=== PATIENT | female | born 1965 ===

== ENCOUNTER 2020-08-07 03:50 | Inpatient (IN) | payer MEDICAID, SELFPAY ==
[2020-08-07] VITALS (15 sets, daily range): BP systolic 101–121; BP diastolic 63–86; PULSE 63–91; RESP 16–18; TEMP 36.5–37.1; O2SAT 94–100
--- NOTE | 2020-08-07 04:54 | PM.HP ---
Providers/Chief Complaint Admitting Physician: Cal Hawley Chief Complaint: Weakness, SOB History of Present Illness Cristine Ramirez is a 54 year old female transferred from [facility] emergency room with diagnosis of cachexia, generalized weakness, findings highly suspicious for advanced lung cancer. The patient presented to emergency room due to severe generalized weakness. Today she was not able to get up and walk. She has lost significant amount of weight since last May. She reports dry cough, shortness of breath and right-sided chest pain. Reports decreased appetite. Denies associated fever or chills, vomiting, diarrhea. Denies similar episodes in the past. She reports tobacco use. He states that she does not drink anymore. Imaging studies in the emergency room revealed complete collapse of the right lung with obstruction of the right mainstem bronchus. Underlying endobronchial and hilar lesion is a concern and cannot be excluded. Small right-sided pleural effusion. There are 2 semisolid masses within the left upper and lower lobe. There is a nodule identified in the left upper lobe as well. There is a compression fracture of the T8 vertebral body. There is heterogeneous appearance of the vertebral body and underlying lesion and pathologic fracture suspected. Please see full official radiology report in the chart (CT chest, abdomen and pelvis) EKG showed normal sinus rhythm. Right atrial enlargement and voltage criteria for left ventricular hypertrophy. No ischemic changes. Blood cell count is 23,000, hemoglobin 12, MCV 81, platelets 631, neutrophils 83, lymphocytes 7, sodium 127, potassium 5.6, chloride 87, bicarb 21, calcium 10.7, BUN 64, creatinine 1.60, glucose 122, protein 7.5, albumin 3.8, LFTs are not elevated. GFR 33. Troponin 31. Lactic acid 2.5. Lipase 43. Review of Systems General: Reports: 10 or more systems reviewed and unremarkable except in HPI and below Medications/Allergies Home Medications Medication Instructions Recorded Confirmed Last Taken Type aspirin 81 mg PO DAILY 08/07/20 08/07/20 08/06/20 08:00 History lisinopril 10 mg PO DAILY 08/07/20 08/07/20 08/06/20 08:00 History Vitals/I&O/Wt Weight last 48 hrs Weight 24.948 kg Physical Exam Narrative: EXAM NARRATIVE: The patient is extremely cachectic. She weighs only 25 kg. Awake. Appears very weak. Responses are slow but adequate. No acute distress Skin is warm and dry. Pale. Moist mucous membranes Eyes PERRL, extraocular muscles are intact Neck supple. No JVD Lungs no breath sounds on the right. Left side decreased breath sounds. No respiratory distress at rest Heart S1, S2, regular Abdomen soft, nontender, bowel sounds are present Extremities no edema cyanosis or calf tenderness bilaterally Normal speech. No focal weakness. A&P Additional A&P Information Cristine Ramirez is a 54 year old female transferred from [facility] emergency room with diagnosis of cachexia, generalized weakness, findings highly suspicious for advanced lung cancer. The patient presented to emergency room due to severe generalized weakness. Right lung collapse probably due to a tumor. Associated nodules on the left and suspected pathologic T8 fracture. Will request pulmonary consultation. Probably the patient will need to have a bronchoscopy for tissue sample biopsy. Currently she is stable and there is no significant hypoxia. Extreme cachexia. We will start with the hydration. Regular diet. Nutritional consult in the morning. Vitamins. Acute kidney injury probably secondary to dehydration. Will hydrate and monitor. Will consider additional testing if it does not improve. Hyponatremia. SIADH is suspected. Will order work-up. Could be also at least partly explained by dehydration. We will monitor her BMP every 4 hours to avoid the rapid correction. Hyperkalemia. Probably due to lisinopril. We will hold her lisinopril. We will hydrate with normal saline and recheck the levels. Leukocytosis. Postobstructive pneumonia is possible. We will start Zosyn and doxycycline. Will check procalcitonin level. We will monitor her CBC. DVT prophylaxis. Teds and SCDs. We will hold off on anticoagulation until pulmonary evaluation in case if bronchoscopy can be done in the morning. EtOH. She reports that she does not drink anymore. Currently there is no evidence of withdrawals. We will order as needed lorazepam small dose due to the weight of the patient. We will also replace her thiamine and folic acid. CODE STATUS. She wants to be full code. The plan of care was discussed with the patient. She verbalized understanding and agreement. Attestations Medical Necessity Statement*: Based on my assessment of patient's condition she will require more than 2 midnights in the hospital. Coding Level of Care Code Acute Irradiated Fuel Handler for Vida Bond
[2020-08-07] MEDS: famotidine 20 mg/2 mL INJ IVP ×2 (05:26→16:50)
[2020-08-07] MEDS: sodium chloride 0.9% 1,000 ML 75 ML IV (05:27)
[2020-08-07] MEDS: morphine 4 mg/mL SDV 1 mL 1 MG IVP ×2 (05:27→16:58)
--- NOTE | 2020-08-07 06:38 | ECG_ITS ---
[facility] ED Test Date: 2020-08-07 Pat Name: Cristine Ramirez Department: Room: 264 Gender: Female Cap Inspector: : [id number] Requested By: Cal Funk Order Number: [id number] Lydia MD: Alexus Lazar M.D. Measurements Intervals [place] Rate: 180 P: HI: QRS: 57 QRSD: 73 T: 74 QT: 243 QTc: 421 Interpretive Statements ATRIAL FIBRILLATION WITH RAPID VENTRICULAR RESPONSE ABNORMAL RHYTHM ECG No previous ECG available for comparison Electronically Signed On 08-09-2020 21:16:58 CDT by Alexus Lazar M.D. [id number]
[2020-08-07] MEDS: metoprolol tartrate 1 mg/1 mL SDV 5 mL 5 MG IV (07:32)
--- NOTE | 2020-08-07 08:02 | PC.NURSE ---
patient's heart rate noted to be going from 70s up to 180s at times. Upon assessment this was confirmed by palpation and auscultation of pulses. Patient care nurse Gualberto Mcarthur LPN took patients vs, which were WNL other than heart rate,called Dr. Hawley who ordered an EKG. EKG showed a fib with rvr, Dr. Hawley notified who ordered 5mg metoprolol IV. This nurse assessed patients blood pressure which was 129/78 and started giving iv metoprolol, throughout medication administration patients blood pressure remained in this range. Heart rate was checked on geomorphology teacher multiple times during administration as well as at bedside, heart rate came down into the 70s-80s and sustained NSR. Blood pressure upon completed dose of iv metoprolol was 117/68. heart rate is now NSR at 70, however patient does yoshi down into the upper 40s. Patient is asymptomatic. Dr. Garvin notifed of this. Patient resting in bed at this time, eating breakfast, no complaints voiced. Call light within reach, patient care nurse Shantel Funk LPN and this nurse will continue to monitor patient.
[2020-08-07] MEDS: piperacillin-tazobactam 3.375 GM in sodium chloride 0.9% (plus) 50 ML IV ×2 (10:09→21:08)
[2020-08-07] MEDS: multivitamin therapeutic Tablet 1 TAB PO (10:10)
[2020-08-07] MEDS: aspirin 81 mg Chew Tablet PO (10:10)
[2020-08-07] MEDS: folic acid 1 mg Tablet PO (10:10)
[2020-08-07] MEDS: doxycycline 100 mg Tablet PO ×2 (10:10→17:56)
[2020-08-07 10:48] LABS: Lactic Sepsis W/Reflex 1.5 mmol/L (0.5-2.2)
[2020-08-07 11:02] LABS: Thyroid Stimulating Hormone 1.14 uIU/mL (0.27-4.20)
[2020-08-07 11:14] LABS: Anion Gap 21.4 (5-19); Blood Urea Nitrogen 61 mg/dL (6-20); Calcium 8.8 mg/dL (8.5-10.5); Carbon Dioxide 20 mmol/L (22-29); Chloride 93 mmol/L (98-107); Glomerular Filtration Rate 35.9 mL/min (90-130); Glucose 101 mg/dL (65-115); Osmolality Calculated 285 mOsm/kg (285-295); Potassium 5.4 mmol/L (3.5-5.1); Sodium 129 mmol/L (136-145)
--- NOTE | 2020-08-07 12:50 | PC.NUTR ---
NUTR WT ASSESSMENT: Pt wt is 55lbs indicating a BMI of 9.5. MST score of 5. Will evaluate and assess.
--- NOTE | 2020-08-07 13:08 | CTR_ITS ---
PROCEDURE INFORMATION: Exam: CT Chest Without Contrast; Diagnostic Exam date and time: 08/07/2020 2:29 PM Age: 54 years old Clinical indication: Other: Weight loss; Shortness of breath; Patient HX: Excessive wt loss and SOB ? pneumo due to CA; Additional info: Possible lung cancer TECHNIQUE: Imaging protocol: Diagnostic computed tomography of the chest without contrast. Radiation optimization: All CT scans at this facility use at least one of these dose optimization techniques: automated exposure control; mA and/or kV adjustment per patient size (includes targeted exams where dose is matched to clinical indication); or iterative reconstruction. COMPARISON: No relevant prior studies available. RADIATION DOSE METRICS: Total DLP (mGy-cm): 613.04 FINDINGS: Lungs: There is a 1.2 cm nodule in the left upper lobe on series 2, image 21, a 3.2 cm nodule in the left upper lobe on image 37 and a 2.8 x 1.3 cm pleural based nodule in the anterior left lower lobe on image 43. There is a 0.4 cm nodule in the left lower lobe on image 52. There has been a right pneumonectomy. Pleural spaces: Unremarkable. No pneumothorax. No pleural effusion. Heart: Unremarkable. No cardiomegaly. No pericardial effusion. Aorta: Unremarkable. No aortic aneurysm. Lymph nodes: Unremarkable. No enlarged lymph nodes. Bones/joints: There is compression deformity of the T8 vertebral body with approximately 50% height loss. There are underlying lytic lesions. There are old right rib fractures and right thoracotomy. No acute fracture. Soft tissues: Unremarkable. IMPRESSION: There are multifocal nodules and masses in the left lung highly suspicious for metastatic disease in this patient with a known history of lung cancer and right pneumonectomy. There is also a pathologic fracture of the T8 vertebral body. PROCEDURE INFORMATION: Exam: CT Abdomen And Pelvis Without Contrast Exam date and time: 08/07/2020 2:29 PM Age: 54 years old Clinical indication: Other: Weight loss; Shortness of breath; Patient HX: Excessive wt loss and SOB ? pneumo due to CA; Additional info: Possible lung cancer TECHNIQUE: Imaging protocol: Computed tomography of the abdomen and pelvis without contrast. Radiation optimization: All CT scans at this facility use at least one of these dose optimization techniques: automated exposure control; mA and/or kV adjustment per patient size (includes targeted exams where dose is matched to clinical indication); or iterative reconstruction. COMPARISON: No relevant prior studies available. RADIATION DOSE METRICS: Total DLP (mGy-cm): 613.04 FINDINGS: Liver: Normal. No mass. Gallbladder and bile ducts: Normal. No calcified stones. No ductal dilation. Pancreas: Normal. No ductal dilation. Spleen: Normal. No splenomegaly. Adrenal glands: Normal. No mass. Kidneys and ureters: Normal. No hydronephrosis. Stomach and bowel: Colonic diverticula are present although there are no CT findings to suggest diverticulitis. No bowel obstruction or wall thickening. Appendix: No evidence of appendicitis. Intraperitoneal space: Unremarkable. No free air. No significant fluid collection. Vasculature: Unremarkable. No abdominal aortic aneurysm. Lymph nodes: Unremarkable. No enlarged lymph nodes. Urinary bladder: Unremarkable as visualized. Reproductive: Unremarkable as visualized. Bones/joints: Unremarkable. No acute fracture. Soft tissues: Unremarkable. CT/CT chest abd pel wo con IMPRESSION: There are no acute concerning abnormalities. Radiation Dose CTDIVOL = (mGy): DLP = 613.04~613.04 (mGy-cm)
[2020-08-07 14:31] LABS: Anion Gap 19.1 (5-19); Blood Urea Nitrogen 57 mg/dL (6-20); Calcium 8.3 mg/dL (8.5-10.5); Carbon Dioxide 19 mmol/L (22-29); Chloride 92 mmol/L (98-107); Glomerular Filtration Rate 33.3 mL/min (90-130); Glucose 139 mg/dL (65-115); Osmolality Calculated 278 mOsm/kg (285-295); Potassium 5.1 mmol/L (3.5-5.1); Sodium 125 mmol/L (136-145)
[2020-08-07 14:51] LABS: Iron 29 ug/dL (37-145); Percent Saturation 10.3 % (20-50); Total Iron Binding Capacity 279 mcg/dl; Unsaturated Iron Binding 250 ug/dL (112-347)
[2020-08-07] MEDS: ipratropium-albuterol 3 mL Neb INHALATION ×2 (15:00→20:48)
--- NOTE | 2020-08-07 15:11 | P.PN_ITS ---
Subjective Subjective: Interval history: Admitted overnight. H&P and labs noted. On examination sitting up in bed with daughter at bedside. Appropriate mood and affect. Patient states she has lost around 20 pounds in last 2 months. Has a strong family history of lung cancer both in her parents his father dying at age 51. Patient is a chronic smoker. At present she denies any nausea vomiting, headache, dizziness, hallucinations. Vitals/I&O/Wt Last Vital Signs Temp 98.7 F 08/07/20 11:15 Pulse 75 08/07/20 15:08 Resp 17 08/07/20 15:01 BP 111/72 08/07/20 11:15 Pulse Ox 98 08/07/20 15:01 08/07/20 08/07/20 08/07/20 06:59 14:59 22:59 Intake Total 50 / 50 Balance 50 / 50 Weight last 48 hrs Weight 24.948 kg Weight 24.948 kg Physical Exam Narrative: EXAM NARRATIVE: The patient is extremely cachectic. She weighs only 25 kg. Awake. Appears very weak. No acute distress Skin is warm and dry. Pale. Moist mucous membranes Eyes PERRL, extraocular muscles are intact Neck supple. No JVD Lungs no breath sounds on the right. Left side decreased breath sounds. No respiratory distress at rest Heart S1, S2, regular Abdomen soft, nontender, bowel sounds are present Extremities no edema cyanosis or calf tenderness bilaterally Normal speech. No focal weakness. Data : 08/07/20 13:45 A&P Assessment and plan (1) Collapse of right lung: Status: Acute (2) SIADH (syndrome of inappropriate ADH production): Status: Acute (3) Hyponatremia: Status: Acute (4) ABELINO (acute kidney injury): Status: Acute (5) Anorexia: Status: Acute (6) Cachexia: Status: Acute Additional A&P Information Cristine Ramirez is a 54 year old female transferred from [facility] emergency room with diagnosis of cachexia, generalized weakness, findings highly suspicious for advanced lung cancer. The patient presented to emergency room due to severe generalized weakness. Right lung collapse: High possibility of lung cancer. Dr. Dyer consulted for possible bronchoscopy. COVID-19 PCR prior to bronchoscopy. DuoNebs every 6 hours for now. Maintain saturation 92%. Patient currently is not hypoxic. Lidocaine patch for pain. Extreme cachexia: Most likely because of cancer. Regular diet with Ensure supplementation with meals. Will look for refeeding syndrome by monitoring magnesium, calcium, phosphorus, potassium regularly. Nutrition consult. Extreme weakness: Most likely from hyponatremia: Highly likely SIADH. Sodium levels went down with IV fluids. Check urine lites, urine osmolality start. Stop IV fluids. Sodium salt tabs 1 g twice daily. Check sodium levels every 4 hours for now. Acute kidney injury: Most likely from dehydration versus anorexia. Medical reconciliation done for nephrotoxic drugs. No acidosis or electrolyte abnormality other than hyponatremia for now. We will continue to monitor. Hyperkalemia has resolved. Leukocytosis: Cannot rule out postobstructive pneumonia. Continue with Zosyn and doxycycline started last night. Procalcitonin will not help with possible cancer. Sputum culture. Patient remains interactive stable and afebrile. Nicotine patch. DVT prophylaxis: Heparin 5000 every 8 for now. SCDs. Prior to bronchoscopy we will hold off heparin. Full code. Regular diet. Famotidine for PUD prophylaxis. Attestations Medical Necessity Statement*: Patient requires further hospitalization for work-up for right lung collapse, probable lung cancer, severe anorexia. Time Spent in Patient Care: Greater than 35 minutes (>than 50% of time spent in counselling and/or direct pt care on unit) . Coding Level of Care Code Acute Mobile Electronics Installer for Vida Bond Diagnoses Collapse of right lung J98.11 SIADH (syndrome of inappropriate ADH production) E22.2 Hyponatremia E87.1 ABELINO (acute kidney injury) N17.9 Anorexia R63.0 Cachexia R64
[2020-08-07 15:21] LABS: Bilirubin Urine Neg (Negative); Blood Urine Neg (Negative); Glucose Urine UA Norm (Normal); Ketones Urine Negative (Negative); Leukocyte Esterase Urine Negative (Negative); Nitrate Urine Negative (Negative); Protein Urine Neg (Negative); Specific Gravity, Urine 1.015 (1.005-1.030); Urine Appearance Turbid (CLEAR); Urine Color Yellow (Yellow); Urobilinogen Urine Norm (Negative); pH Urine 5 (5-7)
[2020-08-07 15:24] LABS: Squamous Epithelial Cell Urine 0-4 /hpf (0-5); Transitional Epi Cells Urine RARE /hpf; WBC Urine 0-4 /hpf (0-5)
[2020-08-07 15:25] LABS: Amorphous Sediment Urine 1+ /hpf; Bacteria Urine 1+ /hpf; Mucus Urine 1+ /hpf
[2020-08-07 15:26] LABS: Add Urine Culture? No
[2020-08-07 15:30] LABS: Potassium, Radom Urine 46 mmol/L; Urine Creatinine 60 mg/dL (28-217); Urine Random Chloride 55 mmol/L; Urine Random Sodium 63 mmol/L
[2020-08-07] MEDS: heparin 5,000 unit/mL INJ 1 mL 5000 UNIT SUBCUT (16:50)
[2020-08-07] MEDS: iron sucrose 200 MG in sodium chloride 0.9% (100 ml) 100 ML 220 MG IV (16:50)
[2020-08-07] MEDS: lidocaine 5% Patch 1 PATCH TOPICAL (16:50)
[2020-08-07 17:13] LABS: Blood Urea Nitrogen 61 mg/dL (6-20); Calcium 8.4 mg/dL (8.5-10.5); Carbon Dioxide 19 mmol/L (22-29); Chloride 93 mmol/L (98-107); Glomerular Filtration Rate 29.1 mL/min (90-130); Glucose 173 mg/dL (65-115); Magnesium 2.1 mg/dL (1.7-2.3); Osmolality Calculated 283 mOsm/kg (285-295); Phosphorus 3.4 mg/dL (2.5-4.5); Sodium 126 mmol/L (136-145)
[2020-08-07 17:19] LABS: Anion Gap 18.9 (5-19); Potassium 4.9 mmol/L (3.5-5.1)
[2020-08-07] MEDS: sodium chloride 1 gm Tablet PO (17:56)
[2020-08-07 20:44] LABS: Anion Gap 16.7 (5-19); Blood Urea Nitrogen 60 mg/dL (6-20); Calcium 8.2 mg/dL (8.5-10.5); Carbon Dioxide 22 mmol/L (22-29); Chloride 95 mmol/L (98-107); Glomerular Filtration Rate 31.1 mL/min (90-130); Glucose 122 mg/dL (65-115); Osmolality Calculated 286 mOsm/kg (285-295); Potassium 4.7 mmol/L (3.5-5.1); Sodium 129 mmol/L (136-145)
[2020-08-08] VITALS (17 sets, daily range): BP systolic 91–117; BP diastolic 54–75; PULSE 70–110; RESP 16–18; TEMP 36.4–36.8; O2SAT 93–100
[2020-08-08] MEDS: ipratropium-albuterol 3 mL Neb INHALATION (02:44)
[2020-08-08] MEDS: morphine 4 mg/mL SDV 1 mL 1 MG IVP (02:52)
[2020-08-08] MEDS: heparin 5,000 unit/mL INJ 1 mL 5000 UNIT SUBCUT ×2 (05:29→16:33)
[2020-08-08] MEDS: famotidine 20 mg/2 mL INJ IVP ×2 (05:29→16:34)
[2020-08-08] MEDS: LORazepam 2 mg/mL INJ 1 mL 0.5 MG IVP ×2 (05:34→11:49)
[2020-08-08 05:54] LABS: Basophils # 0.1 10^3/uL (0.0-0.1); Basophils % 0.5 %; Eosinophils # 1.9 10^3/uL (0.0-0.8); Eosinophils % 9.9 %; Hematocrit 30.1 % (37.0-47.0); Hemoglobin 9.5 g/dL (11.5-15.3); Lymphocytes # 1.7 10^3/uL (0.8-4.8); Lymphocytes % 9.2 %; Mean Corpuscular HGB Conc 31.6 g/dL (30.0-36.0); Mean Corpuscular Hemoglobin 26.6 pg (28.0-34.0); Mean Corpuscular Volume 84.3 fL (81-99); Mean Platelet Volume 9.2 fL (7.4-10.4); Monocytes # 0.9 10^3/uL (0.2-0.9); Monocytes % 4.9 %; Neutrophils # 13.95 10^3/uL (1.8-7.7); Neutrophils % 74.6 %; Nucleated Red Blood Cells % 0 %; Platelet Count 458 10^3/cmm (130-400); Red Blood Count 3.57 10^6/uL (4.1-5.3); Red Cell Distribution Width 16.7 % (12.1-15.1); White Blood Count 18.7 10^3/uL (4.0-10.0)
[2020-08-08 06:11] LABS: INR 0.96 (0.8-1.2)
[2020-08-08 06:12] LABS: Partial Thromboplastin Time 31.3 SECONDS (23.9-36.7)
[2020-08-08 06:40] LABS: Alanine Aminotransferase 6 U/L (0-33); Albumin Level 3.2 g/dL (3.5-5.2); Alkaline Phosphatase 72 IU/L (35-105); Aspartate Amino Transferase 15 U/L (0-32); Blood Urea Nitrogen 55 mg/dL (6-20); Calcium 8.6 mg/dL (8.5-10.5); Carbon Dioxide 21 mmol/L (22-29); Chloride 97 mmol/L (98-107); Ferritin 347 ng/mL (15-150); Globulin 2.1 g/dL (1.3-4.6); Glomerular Filtration Rate 35.9 mL/min (90-130); Glucose 80 mg/dL (65-115); Magnesium 2.1 mg/dL (1.7-2.3); Osmolality Calculated 284 mOsm/kg (285-295); Phosphorus 3.2 mg/dL (2.5-4.5); Sodium 130 mmol/L (136-145); Total Bilirubin 0.2 mg/dL (0.15-1.2); Total Protein 5.3 g/dL (6.6-8.7)
[2020-08-08 06:43] LABS: Anion Gap 16.8 (5-19); Potassium 4.8 mmol/L (3.5-5.1)
[2020-08-08] MEDS: albuterol 8 gm MDI 2 PUFF INHALATION ×3 (08:57→20:09)
[2020-08-08] MEDS: doxycycline 100 mg Tablet PO ×2 (09:44→18:07)
[2020-08-08] MEDS: multivitamin therapeutic Tablet 1 TAB PO (09:44)
[2020-08-08] MEDS: folic acid 1 mg Tablet PO (09:44)
[2020-08-08] MEDS: aspirin 81 mg Chew Tablet PO (09:44)
[2020-08-08] MEDS: sodium chloride 1 gm Tablet PO ×2 (09:44→18:07)
--- NOTE | 2020-08-08 10:25 | PC.NURSE ---
Pt heart rate observed to be over [address] Garvin notified. Orders given for 25 mg metoprolol now and BID. Will continue to monitor.
--- NOTE | 2020-08-08 11:24 | PC.CHAP ---
Pastoral Care Encounter/Spiritual Assessment Type of Contact [] Declined roping tender visit [] Patient/Family/Request visit [] Outpatient visit [x] Follow-up visit [] Physician referral [] Code/Alert [] Routine visit [] Staff referral [] Actively dying [] Patient sleeping [] Family support [] [] Out of room [] Palliative care [] [] Receiving care in room [] Pre-surgical visit [] Trauma [] Long length of stay [] ICU visit [] Other: Relational/Emotional Strength [] Patient feels connected with others/family/visitors/staff [] Distress [] Loneliness/isolation [] Abandonment Spirituality of Patient [] Person of Yamileth [] Attends Zoroastrianism of their Yamileth [] Believes in Prayer [] Reads Bible or Confucianist materials [] There are Spiritual issues to be addressed [place] Interventions [] Prayer [] Active listening [] Non-anxious presence [] Spiritual/emotional support [] Crisis/trauma care [] Spiritual counseling [] Bereavement support [] Provided bereavement packet [] Provided Bible/devotional materials [] Provided toy/stuffed animal, coloring book to patient or family member [] Provided Communion [] Anointing/[place] [] Salvation [] Completed spiritual assessment [] Other: Impact on Illness or Injury [] Angry [] Fearful [] Anxious [] Often cries [] Exhaustion [] Unable to work [] Unable to attend bahai [] Unable to walk/stand [] Unable to read [] Unable to drive [] Unable to eat/drink [] Unable to sleep [] Unable to be with family [] Patient intubated [] Other: Summary Time spent with patient
[2020-08-08] MEDS: piperacillin-tazobactam 3.375 GM in sodium chloride 0.9% (plus) 50 ML IV ×2 (11:49→22:17)
[2020-08-08] MEDS: metoprolol tartrate 25 mg Tablet PO (11:49)
--- NOTE | 2020-08-08 13:26 | P.PN_ITS ---
Subjective Subjective: Interval history: No acute events overnight. Patient states she is doing a lot better. No complaint of nausea, headache, difficulty in breathing, chest pain. Complaining of mild dizziness on standing up after taking pain medications. Medically patient having occasional runs of atrial fibrillation with RVR with heart rate of up to 140s. Patient has remained asymptomatic during the episodes. She continues to remain on room air. Vitals/I&O/Wt Last Vital Signs Temp 97.6 F 08/08/20 11:38 Pulse 110 H 08/08/20 11:38 Resp 18 08/08/20 11:38 BP 112/63 08/08/20 11:38 Pulse Ox 100 08/08/20 11:38 08/07/20 08/08/20 08/08/20 22:59 06:59 14:59 Intake Total 1171.25 / 1221.25 50 / 1271.25 120 / 120 Output Total 250 / 250 Balance 1171.25 / 1221.25 -200 / 1021.25 120 / 120 Weight last 48 hrs Weight 31.479 kg Weight 24.948 kg Weight 24.948 kg Physical Exam Narrative: EXAM NARRATIVE: The patient is extremely cachectic. She weighs only 25 kg. Awake. Appears very weak. No acute distress Skin is warm and dry. Pale. Moist mucous membranes Eyes PERRL, extraocular muscles are intact Neck supple. No JVD Lungs no breath sounds on the right. Left side decreased breath sounds. No respiratory distress at rest Heart S1, S2, regular Abdomen soft, nontender, bowel sounds are present Extremities no edema cyanosis or calf tenderness bilaterally Normal speech. No focal weakness. Data : 08/08/20 05:27 08/08/20 05:27 A&P Assessment and plan (1) Collapse of right lung: Status: Acute (2) SIADH (syndrome of inappropriate ADH production): Status: Acute (3) Hyponatremia: Status: Acute (4) Paroxysmal A-fib: Status: Acute (5) ABELINO (acute kidney injury): Status: Acute (6) Anorexia: Status: Acute (7) Cachexia: Status: Acute Additional A&P Information Cristine Ramirez is a 54 year old female transferred from [facility] emergency room with diagnosis of cachexia, generalized weakness, findings highly suspicious for advanced lung cancer. The patient presented to emergency room due to severe generalized weakness. Right lung collapse: High possibility of lung cancer. Dr. Dyer consulted for possible bronchoscopy. COVID-19 PCR prior to bronchoscopy. DuoNebs every 6 hours for now. Maintain saturation 92%. Patient currently is not hypoxic. Lidocaine patch for pain. Tramadol for pain. Stop Ativan as needed. She does not have any fever but has leukocytosis. Less likely that patient has pneumonia but cannot rule out postobstructive pneumonia. For now continue with doxycycline and Zosyn. Day 3 today. Atrial fibrillation with RVR: Paroxysmal: Currently in sinus rhythm. Start patient on metoprolol 25 mg twice daily. Patient went bradycardic with metoprolol 5 mg IV yesterday so we will start her with low-dose metoprolol for now. Telemetry. Patient due for bronchoscopy tomorrow. For now we will hold off on starting patient with anticoagulation. Extreme cachexia: Most likely because of cancer. Regular diet with Ensure supplementation with meals. Will look for refeeding syndrome by monitoring magnesium, calcium, phosphorus, potassium regularly. Nutrition consult. Hyponatremia: SIADH: Sodium levels went down with IV fluids. Urine sodium more than 60. Sodium up improving appropriately. Check BMP every 12 hours for now. Continue with fluid restriction up to 1500 cc, salt tabs. Acute kidney injury: Resolving. Most likely from dehydration versus anorexia. Medical reconciliation done for nephrotoxic drugs. No acidosis or electrolyte abnormality other than hyponatremia for now. We will continue to monitor. Hyperkalemia has resolved. Leukocytosis: Cannot rule out postobstructive pneumonia. Continue with Zosyn and doxycycline started last night. Procalcitonin will not help with possible cancer. Sputum culture. Patient remains interactive stable and afebrile. Nicotine patch. DVT prophylaxis: Heparin 5000 every 8 for now. SCDs. Prior to bronchoscopy we will hold off heparin. Full code. Regular diet. Famotidine for PUD prophylaxis. Attestations Medical Necessity Statement*: Requires further hospitalization for management of right lung collapse, most likely lung cancer, hyponatremia because of SIADH with atrial fibrillation with RVR. Time Spent in Patient Care: Greater than 35 minutes (>than 50% of time spent in counselling and/or direct pt care on unit) . Coding Level of Care Code Acute Tele Tech for Vida Bond Diagnoses Collapse of right lung J98.11 SIADH (syndrome of inappropriate ADH production) E22.2 Hyponatremia E87.1 Paroxysmal A-fib I48.0 ABELINO (acute kidney injury) N17.9 Anorexia R63.0 Cachexia R64
[2020-08-08 16:07] LABS: Osmolality Serum 292 mOsm/kg (278-305)
[2020-08-08 16:17] LABS: Coronavirus Test Green County Not Detected
[2020-08-08] MEDS: iron sucrose 200 MG in sodium chloride 0.9% (100 ml) 100 ML 220 MG IV (16:30)
[2020-08-08 19:19] LABS: Blood Urea Nitrogen 43 mg/dL (6-20); Calcium 8.4 mg/dL (8.5-10.5); Carbon Dioxide 15 mmol/L (22-29); Chloride 98 mmol/L (98-107); Glomerular Filtration Rate 46.5 mL/min (90-130); Glucose 93 mg/dL (65-115); Osmolality Calculated 279 mOsm/kg (285-295); Sodium 129 mmol/L (136-145)
[2020-08-08 19:34] LABS: Anion Gap 20.8 (5-19); Potassium 4.8 mmol/L (3.5-5.1)
--- NOTE | 2020-08-08 20:36 | PC.NURSE ---
Patient found with E-cigarette in room. E-cigarette removed from room and placed in [facility].
[2020-08-09] VITALS (11 sets, daily range): BP systolic 96–102; BP diastolic 54–70; PULSE 67–88; RESP 16–18; TEMP 36.4–37.1; O2SAT 95–100
[2020-08-09] MEDS: albuterol 8 gm MDI 2 PUFF INHALATION ×2 (02:47→08:02)
[2020-08-09] MEDS: acetaminophen 325 mg Tablet 650 MG PO (04:21)
[2020-08-09] MEDS: famotidine 20 mg/2 mL INJ IVP (04:59)
[2020-08-09 05:25] LABS: Basophils # 0.1 10^3/uL (0.0-0.1); Basophils % 0.6 %; Eosinophils # 2.2 10^3/uL (0.0-0.8); Eosinophils % 11.6 %; Hematocrit 27.2 % (37.0-47.0); Hemoglobin 8.8 g/dL (11.5-15.3); Lymphocytes # 1.8 10^3/uL (0.8-4.8); Lymphocytes % 9.7 %; Mean Corpuscular HGB Conc 32.4 g/dL (30.0-36.0); Mean Corpuscular Hemoglobin 27.1 pg (28.0-34.0); Mean Corpuscular Volume 83.7 fL (81-99); Mean Platelet Volume 9.5 fL (7.4-10.4); Monocytes # 1.3 10^3/uL (0.2-0.9); Monocytes % 7.1 %; Neutrophils # 13.22 10^3/uL (1.8-7.7); Neutrophils % 69.8 %; Nucleated Red Blood Cells % 0 %; Platelet Count 391 10^3/cmm (130-400); Red Blood Count 3.25 10^6/uL (4.1-5.3); Red Cell Distribution Width 16.6 % (12.1-15.1); White Blood Count 18.9 10^3/uL (4.0-10.0)
[2020-08-09 05:26] LABS: Alanine Aminotransferase 8 U/L (0-33); Albumin Level 2.9 g/dL (3.5-5.2); Alkaline Phosphatase 80 IU/L (35-105); Anion Gap 14.6 (5-19); Aspartate Amino Transferase 11 U/L (0-32); Blood Urea Nitrogen 37 mg/dL (6-20); Calcium 8.4 mg/dL (8.5-10.5); Carbon Dioxide 23 mmol/L (22-29); Chloride 100 mmol/L (98-107); Globulin 2.6 g/dL (1.3-4.6); Glomerular Filtration Rate 51.4 mL/min (90-130); Glucose 85 mg/dL (65-115); Osmolality Calculated 284 mOsm/kg (285-295); Potassium 4.6 mmol/L (3.5-5.1); Sodium 133 mmol/L (136-145); Total Bilirubin 0.2 mg/dL (0.15-1.2); Total Protein 5.5 g/dL (6.6-8.7)
[2020-08-09] MEDS: heparin 5,000 unit/mL INJ 1 mL 5000 UNIT SUBCUT (05:45)
--- NOTE | 2020-08-09 05:55 | PC.NURSE ---
Patients BP found to be 91/54 at the time of her scheduled dose of metoprolol 25mg PO. Dr. Celestin was contacted and made aware of patients current vitals. Physician ordered hold of dose due to BP. Patient telemetry was monitored throughout night with some instances of irregularity. Patient heart rate stayed in mid 70's though out the night.
[2020-08-09] MEDS: multivitamin therapeutic Tablet 1 TAB PO (09:31)
[2020-08-09] MEDS: metoprolol tartrate 25 mg Tablet PO (09:31)
[2020-08-09] MEDS: aspirin 81 mg Chew Tablet PO (09:31)
[2020-08-09] MEDS: folic acid 1 mg Tablet PO (09:31)
[2020-08-09] MEDS: sodium chloride 1 gm Tablet PO (09:31)
[2020-08-09] MEDS: doxycycline 100 mg Tablet PO (09:31)
--- NOTE | 2020-08-09 09:58 | PC.CHAP ---
Pastoral Care Encounter/Spiritual Assessment Type of Contact [] Declined painter helper spray visit [] Patient/Family/Request visit [] Outpatient visit [] Follow-up visit [] Physician referral [] Code/Alert [x] Routine visit [] Staff referral [] Actively dying [] Patient sleeping [] Family support [] [] Out of room [] Palliative care [] [] Receiving care in room [] Pre-surgical visit [] Trauma [] Long length of stay [] ICU visit [] Other: Relational/Emotional Strength [] Patient feels connected with others/family/visitors/staff [] Distress [] Loneliness/isolation [] Abandonment Spirituality of Patient [] Person of Yamileth [] Attends Yarsanism of their Yamileth [] Believes in Prayer [] Reads Bible or Catholic materials [] There are Spiritual issues to be addressed Metal Mover Interventions [] Prayer [x] Active listening [x] Non-anxious presence [x] Spiritual/emotional support [] Crisis/trauma care [] Spiritual counseling [] Bereavement support [] Provided bereavement packet [] Provided Bible/devotional materials [] Provided toy/stuffed animal, coloring book to patient or family member [] Provided Communion [] Anointing/[place] [] Salvation [] Completed spiritual assessment [] Other: Impact on Illness or Injury [] Angry [] Fearful [] Anxious [] Often cries [] Exhaustion [] Unable to work [] Unable to attend nondenominational [] Unable to walk/stand [] Unable to read [] Unable to drive [] Unable to eat/drink [] Unable to sleep [] Unable to be with family [] Patient intubated [] Other: Summary Began a visit with Pt but a just a moment into the visit, the nurse entered the room for procedure. Metal Mover excused self and stated would return later. Metal Mover returned later and Pt was sleeping. Time spent with patient 3m
[2020-08-09] MEDS: piperacillin-tazobactam 3.375 GM in sodium chloride 0.9% (plus) 50 ML IV (10:11)
--- NOTE | 2020-08-09 12:13 | P.DS_ITS ---
Discharge Providers Date of Admission: 08/07/20 03:50 Date of Discharge: August 09, 2020 Attending Provider at Admission: Cal Hawley Attending Provider at Discharge: Jhonatan Garvin MD Consults: Pulmonology: Dr. Dyer Diagnoses at Discharge Discharge Diagnosis (1) Collapse of right lung: Status: Acute (2) SIADH (syndrome of inappropriate ADH production): Status: Acute (3) Hyponatremia: Status: Acute (4) Paroxysmal A-fib: Status: Acute (5) ABELINO (acute kidney injury): Status: Acute (6) Anorexia: Status: Acute (7) Cachexia: Status: Acute Reason for Visit Reason for Visit: Weakness, SOB Hospital Course Hospital Course Cristine Ramirez is a 54 year old female transferred from [facility] emergency room with diagnosis of cachexia, generalized weakness, findings highly suspicious for advanced lung cancer. The patient presented to emergency room due to severe generalized weakness. Today she was not able to get up and walk. She has lost significant amount of weight since last May. She reports dry cough, shortness of breath and right-sided chest pain. Reports decreased appetite. Denies associated fever or chills, vomiting, diarrhea. Denies similar episodes in the past. She reports tobacco use. He states that she does not drink anymore. Imaging studies in the emergency room revealed complete collapse of the right lung with obstruction of the right mainstem bronchus. Underlying endobronchial and hilar lesion is a concern and cannot be excluded. Small right-sided pleural effusion. There are 2 semisolid masses within the left upper and lower lobe. There is a nodule identified in the left upper lobe as well. There is a compression fracture of the T8 vertebral body. There is heterogeneous appearance of the vertebral body and underlying lesion and pathologic fracture suspected. Please see full official radiology report in the chart (CT chest, abdomen and pelvis) EKG showed normal sinus rhythm. Right atrial enlargement and voltage criteria for left ventricular hypertrophy. No ischemic changes. Blood cell count is 23,000, hemoglobin 12, MCV 81, platelets 631, neutrophils 83, lymphocytes 7, sodium 127, potassium 5.6, chloride 87, bicarb 21, calcium 10 .7, BUN 64, creatinine 1.60, glucose 122, protein 7.5, albumin 3.8, LFTs are not elevated. GFR 33. Troponin 31. Lactic acid 2.5. Lipase 43. Patient admitted the hospital for for further management of right lung collapse. CT scan was done and determined there is highly likely because of lung cancer. During hospitalization patient did not require any oxygen. She was found to be extremely cachectic. Her lab work from the ER showed hyponatremia. On review of labs it is most likely secondary to SIADH. She was started on fluid restriction and salt tablets to which her sodium levels responded appropriately. She was advanced on diet while keeping a check on possible refeeding syndrome. Pulmonology was consulted and the recommended for the patient to be followed up as an outpatient for a lung biopsy after a PET scan. She is been discharged in hemodynamically stable condition with advised to follow-up with pulmonology in next 4 to 7 days and also with a primary care provider within next 4 to 7 days for repeat BMP. Physical Exam Narrative: EXAM NARRATIVE: The patient is extremely cachectic. She weighs only 25 kg. Awake. Appears very weak. No acute distress Skin is warm and dry. Pale. Moist mucous membranes Eyes PERRL, extraocular muscles are intact Neck supple. No JVD Lungs no breath sounds on the right. Left side decreased breath sounds. No respiratory distress at rest Heart S1, S2, regular Abdomen soft, nontender, bowel sounds are present Extremities no edema cyanosis or calf tenderness bilaterally Normal speech. No focal weakness. Discharge Data Data Completed and Pending: Completed Studies During Hospitalization Category Date Time Status CT chest abd pel wo con Routine Cat Scan 08/07/20 13:08 Completed Pending at discharge Category Date Time Status Basic Metabolic P rojelio Q12H Lab 08/09/20 17:00 Ordered Osmolality Urine Routine Lab 08/07/20 14:36 Received Sputum Culture an d Gram Stain Gisseli ne Lab 08/08/20 18:27 Results Labs from last 24 hours 08/09/20 08/09/20 08/08/20 04:53 04:53 17:39 WBC 18.9 H RBC 3.25 L Hgb 8.8 L Hct 27.2 L MCV 83.7 MCH 27.1 L MCHC 32.4 RDW 16.6 H Plt Count 391 MPV 9.5 Neut % (Auto) 69.8 Lymph % (Auto) 9.7 [place] % (Auto) 7.1 Eos % (Auto) 11.6 Baso % (Auto) 0.6 Neut # (Auto) 13.22 H Lymph # (Auto) 1.8 [place] # (Auto) 1.3 H Eos # (Auto) 2.2 H Baso # (Auto) 0.1 Nucleated RBC % (a uto) 0 Nucleated RBCs # 0.0 Sodium 133 L 129 L Potassium 4.6 4.8 Chloride 100 98 Carbon Dioxide 23 15 L Anion Gap 14.6 20.8 H BUN 37 H 43 H Creatinine 1.1 H 1.2 H GFR Calculation 51.4 L 46.5 L Glucose 85 93 Serum Osmolality Calculated Osmolal ity 284 L 279 L Calcium 8.4 L 8.4 L Total Bilirubin 0.2 AST 11 ALT 8 Alkaline Phosphata se 80 Total Protein 5.5 L Albumin 2.9 L Globulin 2.6 Nasal/Oral COVID-1 9 PCR 08/07/20 08/07/20 15:19 09:55 WBC RBC Hgb Hct MCV MCH MCHC RDW Plt Count MPV Neut % (Auto) Lymph % (Auto) [place] % (Auto) Eos % (Auto) Baso % (Auto) Neut # (Auto) Lymph # (Auto) [place] # (Auto) Eos # (Auto) Baso # (Auto) Nucleated RBC % (a uto) Nucleated RBCs # Sodium Potassium Chloride Carbon Dioxide Anion Gap BUN Creatinine GFR Calculation Glucose Serum Osmolality 292 Calculated Osmolal ity Calcium Total Bilirubin AST ALT Alkaline Phosphata se Total Protein Albumin Globulin Nasal/Oral COVID-1 9 PCR Not detected Addt'l Data from Hospital Stay: Laboratory Results WBC 18.9 10^3/uL (4.0 -10.0) H 08/09/20 04:53 RBC 3.25 10^6/uL (4.1 -5.3) L 08/09/20 04:53 Hgb 8.8 g/dL (11.5-15 .3) L 08/09/20 04:53 Hct 27.2 % (37.0-47.0 ) L 08/09/20 04:53 MCV 83.7 fL (81-99) 08/09/20 04:53 MCH 27.1 pg (28.0-34. 0) L 08/09/20 04:53 MCHC 32.4 g/dL (30.0-3 6.0) 08/09/20 04:53 RDW 16.6 % (12.1-15.1 ) H 08/09/20 04:53 Plt Count 391 10^3/cmm (130 -400) 08/09/20 04:53 MPV 9.5 fL (7.4-10.4) 08/09/20 04:53 Neut % (Auto) 69.8 % 08/09/20 04:53 Lymph % (Auto) 9.7 % 08/09/20 04:53 [place] % (Auto) 7.1 % 08/09/20 04:53 Eos % (Auto) 11.6 % 08/09/20 04:53 Baso % (Auto) 0.6 % 08/09/20 04:53 Neut # (Auto) 13.22 10^3/uL (1. 8-7.7) H 08/09/20 04:53 Lymph # (Auto) 1.8 10^3/uL (0.8- 4.8) 08/09/20 04:53 [place] # (Auto) 1.3 10^3/uL (0.2- 0.9) H 08/09/20 04:53 Eos # (Auto) 2.2 10^3/uL (0.0- 0.8) H 08/09/20 04:53 Baso # (Auto) 0.1 10^3/uL (0.0- 0.1) 08/09/20 04:53 Nucleated RBC % (a uto) 0 % 08/09/20 04:53 Nucleated RBCs # 0.0 /100WBC 08/09/20 04:53 PT 13.10 SECONDS (12 .1-14.9) 08/08/20 05:27 INR 0.96 (0.8-1.2) 08/08/20 05:27 APTT 31.3 SECONDS (23. 9-36.7) 08/08/20 05:27 Sodium 133 mmol/L (136-1 45) L 08/09/20 04:53 Potassium 4.6 mmol/L (3.5-5 .1) 08/09/20 04:53 Chloride 100 mmol/L (98-10 7) 08/09/20 04:53 Carbon Dioxide 23 mmol/L (22-29) 08/09/20 04:53 Anion Gap 14.6 (5-19) 08/09/20 04:53 BUN 37 mg/dL (6-20) H 08/09/20 04:53 Creatinine 1.1 mg/dL (0.5-0. 9) H 08/09/20 04:53 GFR Calculation 51.4 mL/min (90-1 30) L 08/09/20 04:53 Glucose 85 mg/dL (65-115) 08/09/20 04:53 Serum Osmolality 292 mOsm/kg (278- 305) 08/07/20 09:55 Calculated Osmolal ity 284 mOsm/kg (285- 295) L 08/09/20 04:53 Lactic Acid 1.5 mmol/L (0.5-2 .2) 08/07/20 09:55 Calcium 8.4 mg/dL (8.5-10 .5) L 08/09/20 04:53 Phosphorus 3.2 mg/dL (2.5-4. 5) 08/08/20 05:27 Magnesium 2.1 mg/dL (1.7-2. 3) 08/08/20 05:27 Iron 29 ug/dL (37-145) L 08/07/20 13:45 TIBC 279 mcg/dl 08/07/20 13:45 % Saturation 10.3 % (20-50) L 08/07/20 13:45 Unsat Iron Binding 250 ug/dL (112-34 7) 08/07/20 13:45 Ferritin 347 ng/mL (15-150 ) H 08/08/20 05:27 Total Bilirubin 0.2 mg/dL (0.15-1 .2) 08/09/20 04:53 AST 11 U/L (0-32) 08/09/20 04:53 ALT 8 U/L (0-33) 08/09/20 04:53 Alkaline Phosphata se 80 IU/L (35-105) 08/09/20 04:53 Total Protein 5.5 g/dL (6.6-8.7 ) L 08/09/20 04:53 Albumin 2.9 g/dL (3.5-5.2 ) L 08/09/20 04:53 Globulin 2.6 g/dL (1.3-4.6 ) 08/09/20 04:53 Procalcitonin 0.30 ng/mL (0-0.5 ) 08/07/20 09:55 TSH 1.14 uIU/mL (0.27 -4.20) 08/07/20 09:55 Urine Color Yellow (Yellow) 08/07/20 14:36 Urine Appearance Turbid (CLEAR) 08/07/20 14:36 Urine pH 5 (5-7) 08/07/20 14:36 Ur Specific Gravit y 1.015 (1.005-1.0 30) 08/07/20 14:36 Urine Protein Neg (Negative) 08/07/20 14:36 Urine Glucose (UA) Norm (Normal) 08/07/20 14:36 Urine Ketones Negative (Negati ve) 08/07/20 14:36 Urine Blood Neg (Negative) 08/07/20 14:36 Urine Nitrate Negative (Negati ve) 08/07/20 14:36 Urine Bilirubin Neg (Negative) 08/07/20 14:36 Urine Urobilinogen Norm mg/dL (Negat natasha) 08/07/20 14:36 Ur Leukocyte Kiara ase Negative (Negati ve) 08/07/20 14:36 Urine RBC None /hpf (0-2) 08/07/20 14:36 Urine WBC 0-4 /hpf (0-5) H 08/07/20 14:36 Ur Squamous Epith Cells 0-4 /hpf (0-5) H 08/07/20 14:36 Ur Transition Epit h Cell Rare /hpf 08/07/20 14:36 Amorphous Sediment 1+ /hpf 08/07/20 14:36 Urine Bacteria 1+ /hpf (NONE) H 08/07/20 14:36 Hyaline Casts 5-10 /lpf H 08/07/20 14:36 Urine Mucus 1+ /hpf 08/07/20 14:36 Ur Random Sodium 63 mmol/L 08/07/20 14:36 Ur Random Sodium 63 mmol/L 08/07/20 14:36 Ur Random Potassiu m 46 mmol/L 08/07/20 14:36 Ur Random Chloride 55 mmol/L 08/07/20 14:36 Urine Creatinine 60 mg/dL (28-217) 08/07/20 14:36 Nasal/Oral COVID-1 9 PCR Not detected 08/07/20 15:19 Impressions Chest/Abdomen/Pelvis CT 08/07/20 13:08 IMPRESSION: There are multifocal nodules and masses in the left lung highly suspicious for metastatic disease in this patient with a known history of lung cancer and right pneumonectomy. There is also a pathologic fracture of the T8 vertebral body. Radiation Dose CTDIVOL = (mGy): DLP = 613.04~613.04 (mGy-cm) Vitals: Last Vital Signs Temp 97.6 F 08/09/20 11:33 Pulse 79 08/09/20 11:33 Resp 18 08/09/20 11:33 BP 102/70 08/09/20 11:33 Pulse Ox 95 08/09/20 11:33 Discharge Plan Discharge Patient Disposition: Home Condition: Stable Prescriptions: New doxycycline monohydrate 100 mg Tablet 100 mg PO BID Qty: 5 RF: 0 folic acid 1 mg Tablet 1 mg PO DAILY Qty: 30 RF: 0 metoprolol tartrate 25 mg Tablet 25 mg PO BID@0900,2100 Qty: 60 RF: 0 Thera 400 mcg Tablet 1 tab PO DAILY Qty: 30 RF: 0 tramadol 50 mg tablet 50 mg PO Q12H PRN (Reason: pain) Qty: 10 RF: 0 sodium chloride 1 gram Tablet 1 g PO BID 7 Days Qty: 14 RF: 0 ferrous fumarate 325 mg (106 mg iron) tablet 325 mg PO BID Qty: 60 RF: 0 lidocaine [Lidoderm] 5 % Adhesive Patch,Medicated 1 patch topical [id number] Qty: 10 RF: 0 Ensure MAX Protein Liquid 1 ea PO TIDWMEAL Qty: 1320 RF: 0 Continued aspirin 81 mg Tablet 81 mg PO DAILY RF: 0 Discontinued lisinopril 10 mg Tablet 10 mg PO DAILY RF: 0 Discharge Orders: Discharge Order (Routine); Ordered 08/09/20 Ordered By: Jhonatan Garvin Referrals: Jerri Ervin MD [Family Provider] - 4-7 days (recheck BMP) Vipul Dyer MD [Physician] - 4-7 days (Lung biopsy) Discharge Diet: Usual diet Discharge Activity: Resume usual activity Patient Instructions: Opioid Safety Activity Restrictions/Additional Instructions: Please Follow-up with Dr. Dyer next 4 to 7 days for possible lung biopsy as an outpatient Please follow-up with your primary care provider for repeat BMP in 4 to 7 days. Till then please make sure you take your salt tablets twice a day. Please try to have Ensure with each meal 3 times a day. Discharge Attestations Time Spent in Discharge Care*: greater than 30 min Specific Discharge Activities: educating patient, educating and/or supporting family/caregiver, discussing with pcp/other providers, discussing with correctional counselor/case manager/social workers/dc planners, documenting/other paperwork and evaluating patient/reviewing data Status at Discharge: Cognitive status at discharge: cognitively intact , Behavioral status at discharge: cooperative , Functional status at discharge: independent ambulation Overall status at discharge: patient has a new baseline Quality Metrics Clinical Quality Measures During this hospital stay, did patient experience: None Coding Level of Care Code Acute Chg FW DC note Diagnoses Collapse of right lung J98.11 SIADH (syndrome of inappropriate ADH production) E22.2 Hyponatremia E87.1 Paroxysmal A-fib I48.0 ABELINO (acute kidney injury) N17.9 Anorexia R63.0 Cachexia R64
--- NOTE | 2020-08-09 12:33 | PC.OT ---
Attempted to treat pt this A.M. Pt states that she is discharging this afternoon and has no further need for OT services at this time. DEION Gonzales/Reji LEE/Ange
--- NOTE | 2020-08-09 13:00 | PC.NURSE ---
Discharge reviewed with patient and daughter at this time. Patient and daughter verbalized understanding. Patient denied any questions. IV removed intact. Patient is A&Ox3. Respirations even and non-labored on room air. Patient wheel chaired to private car at this time.
[2020-08-09 15:18] LABS: Osmolality Urine 526 mOsm/kg (50-1200)
--- NOTE | 2020-08-10 16:59 | PC.RESP ---
Smoking Cessation information sent to patient.
== END 2020-08-09 12:50 | disposition home or self-care (01) | DRG 206 ==
PROVIDERS: Admitting Provider Internal Medicine; Family Provider Family Medicine; Visit Provider Student in an Organized Health Care Education/Training Program
DX: J98.11 Atelectasis (principal); R64 Cachexia; Z68.1 Body mass index [BMI] 19.9 or less, adult; M48.54XA Collapsed vertebra, not elsewhere classified, thoracic region, initial encounter for fracture; N17.9 Acute kidney failure, unspecified; E22.2 Syndrome of inappropriate secretion of antidiuretic hormone; J90 Pleural effusion, not elsewhere classified; E86.0 Dehydration; E87.5 Hyperkalemia; Z80.1 Family history of malignant neoplasm of trachea, bronchus and lung; F17.210 Nicotine dependence, cigarettes, uncomplicated; I48.0 Paroxysmal atrial fibrillation; F10.21 Alcohol dependence, in remission; R91.8 Other nonspecific abnormal finding of lung field; Z79.82 Long term (current) use of aspirin; Z90.2 Acquired absence of lung [part of]; Z85.118 Personal history of other malignant neoplasm of bronchus and lung
CPT/HCPCS: 36415; 71250; 74176; 80048; 80053; 81001; 82436; 82570; 82728; 83540; 83550; 83605; 83735; 83930; 83935; 84100; 84133; 84145; 84300; 84443; 85025; 85610; 85730; 87070; 87205; 87635; 87641; 93005; 94640; 96372; 97110; 97161; 97166; 97530; 97535; J1644; J1756; J2060; J2270; J2543; J3411; J3490; J3535; J7030